=== PATIENT | female | born 1975 | race Caucasian/White ===

== ENCOUNTER 2021-05-07 10:33 | Emergency (ER) | payer OTHER, SELFPAY ==
[2021-05-07 10:40] VITALS: BP 153/91; PULSE 76; RESP 12; TEMP 36.5; O2SAT 98
[2021-05-07 10:50] VITALS: BP 153/91; PULSE 76; RESP 12; TEMP 36.5; O2SAT 98
[2021-05-07] MEDS: MECLIZINE HCL 25 MG TABLET 50 MG PO (11:39)
--- NOTE | 2021-05-07 11:41 | ECG_ITS ---
Measurements Intervals [place] Rate: 76 P: 32 OK: 158 QRS: 7 QRSD: 98 T: 26 QT: 397 QTc: 447 Interpretive Statements SINUS RHYTHM NORMAL ECG Electronically Signed On 05-07-2021 12:25:02 CDT by Shaun Andrade D.O.
--- NOTE | 2021-05-07 11:53 | ED.DIZZY ---
HPI - Dizziness General Chief Complaint: Dizziness Stated Complaint: DIZZY/VOMITING Time Seen by Provider: 05/07/21 11:18 Source: patient and RN notes reviewed Mode of arrival: ambulatory Limitations: no limitations History of Present Illness HPI Narrative: Patient presents today complaining of dizziness since 1:00am last night with nausea. Patient states symptoms are significantly exacerbated with any head movement. Patient states my body feels like there is a pulse in it. Denies vomiting, ear pain or pressure, chest pain or shortness of breath, numbness or tingling in the extremities, headache, vision changes. History of vertigo. Patient states her vertigo symptoms are typically accompanied by a migraine, but she does not currently have a migraine. Patient purchased some Dramamine at the [employer] this morning and took 1. Reports no change in symptoms. History of diabetes and has an insulin pump. Reports blood sugar was 135 upon her arrival. MD elicited complaint: dizziness Related Data Home Medications Medication Instructions Recorded Confirmed alprazolam 05/07/21 atenolol 05/07/21 atorvastatin 05/07/21 balsalazide mg PO 05/07/21 blood-glucose sensor [Dexcom G6 05/07/21 05/07/21 Sensor] calcitriol 05/07/21 cyclobenzaprine mg 05/07/21 diclofenac sodium PO 05/07/21 furosemide 05/07/21 gabapentin 05/07/21 glimepiride mg 05/07/21 insulin glargine [Lantus Solostar SUBCUT 05/07/21 U-100 Insulin] insulin lispro [Humalog U-100 05/07/21 Insulin] ketoconazole applic TOPICAL 05/07/21 ketorolac 05/07/21 levothyroxine 05/07/21 metformin mg 05/07/21 nortriptyline 05/07/21 semaglutide [Rybelsus] mg PO 05/07/21 sertraline mg 05/07/21 terbinafine HCl mg 05/07/21 tizanidine mg 05/07/21 Allergies Allergy/AdvReac Type Severity Reaction Status Date / Time codeine Allergy Mild VOMITING Verified 06/27/18 18:16 latex Allergy Mild BLISTER Verified 06/27/18 18:16 Sulfa (Sulfonamide Allergy Mild HIVES Verified 06/27/18 18:16 Antibiotics) Penicillins Allergy Unknown Verified 05/07/21 10:48 Review of Systems Review of Systems: CONSTITUTIONAL: Denies body aches, fever, chills, or sweats. EYES: Denies visual changes, redness, or discharge. ENT: Denies rhinorrhea, congestion, sore throat, or otalgia. CARDIOVASCULAR: Denies chest pain, palpitations, or edema. RESPIRATORY: Denies cough or dyspnea. GASTROINTESTINAL: Denies abdominal pain, vomiting, or diarrhea.+ Nausea GENITOURINARY: Denies dysuria or hematuria. SKIN: Denies rash, itching, or wounds. MUSCULOSKELETAL: Denies back pain, joint pain, or myalgia. NEUROLOGIC: Denies headache, numbness, tingling, or weakness.+ Dizziness PSYCH: Denies depression or anxiety. [facility] Past Medical History Medical History (Updated 05/07/21 @ 12:16 by Caroline De Los Santos, [facility], ) Diabetes Migraines Thyroid cancer Vertigo Comments At time of signature, I have reviewed and agree with nursing past medical, surgical, social and family history unless otherwise noted. Please see nursing chart for further information. There is no relevant family history pertinent to the presenting complaint Exam Narrative: GENERAL: Well-appearing, well-nourished, and in no acute distress. HEAD: Normocephalic, atraumatic. EYES: EOMI. PERRL. No nystagmus noted. No redness or drainage. Conjunctivae normal. ENT: Mucous membranes pink and moist. Nares clear. No rhinorrhea. TMs normal bilaterally. Throat normal. Uvula midline. NECK: Normal AROM. Supple. No lymphadenopathy. CHEST: No respiratory distress. Clear to auscultation. HEART: Regular rate and rhythm. No murmur appreciated. Normal peripheral pulses. EXTREMITIES: Normal range of motion. No edema. Hand pilot captain equal and strong. Dorsiflexion and plantarflexion equal and strong. SKIN: Warm, dry, no rash. Capillary refill normal. Normal skin turgor. NEURO: No focal deficits. Alert and oriented x3. Patient sta
== END 2021-05-07 12:23 | disposition home or self-care (01) ==
PROVIDERS: Emergency Provider Nurse Practitioner; PCP Internal Medicine
DX: R42 Dizziness and giddiness (principal); E11.9 Type 2 diabetes mellitus without complications; Z85.850 Personal history of malignant neoplasm of thyroid
CPT/HCPCS: 93005; 99213; A9270; G0463

== ENCOUNTER 2023-04-04 12:24 | Emergency (ER) | payer OTHER, SELFPAY ==
--- NOTE | ~2023-04-04 | XR_ITS ---
EXAMINATION: XR knee RT min 4V DATE: 04/04/2023 12:42 INDICATION: Right knee injury and pain. TECHNIQUE: 4 views of right knee were obtained. COMPARISON: None. FINDINGS: Bone alignment is normal. No fracture. There is mild tricompartmental osteoarthritis. There is a small knee joint effusion. IMPRESSION: 1. Mild right knee osteoarthritis. 2. Small right knee joint effusion. Reviewed, dictated and finalized at location A.
[2023-04-04 12:29] VITALS: BP 132/75; PULSE 83; RESP 18; TEMP 36.4; O2SAT 96
--- NOTE | 2023-04-04 13:26 | ED.GENADULT ---
HPI - General Adult General Chief complaint: Extremity Injury, Lower Stated complaint: Right Knee Injury Source: patient Mode of arrival: ambulatory Limitations: no limitations History of Present Illness HPI narrative: Patient presents for evaluation of right-sided knee pain. Symptom onset 2 days ago while lying in bed. She had a muscle cramp in her right flank. She attempted to reposition herself and felt a sharp pain in her right knee. Since that time pain is been constant, severe, worse with certain movements. She can only take NSAIDs for pain per her reports as she is currently on naltrexone. She reports some numbness in the right anterolateral aspect of the right knee. Related Data Home Medications Medication Instructions Recorded Confirmed atenolol 100 mg tablet 100 mg PO BID 05/07/21 04/04/23 blood-glucose sensor (Dexcom G6 05/07/21 04/04/23 Sensor device) calcitriol 0.5 mcg capsule 0.5 mcg PO DAILY 05/07/21 04/04/23 furosemide 40 mg tablet 40 mg PO TID 05/07/21 04/04/23 nortriptyline 25 mg capsule 25 mg PO QHS 05/07/21 04/04/23 tizanidine 2 mg tablet 2 mg PO TID 05/07/21 04/04/23 gabapentin 600 mg tablet 600 mg PO TID 04/04/23 04/04/23 levothyroxine 125 mcg tablet 125 mcg PO BID 04/04/23 04/04/23 lisinopril 10 mg tablet 10 mg PO DAILY 04/04/23 04/04/23 metolazone 2.5 mg tablet 2.5 mg PO DAILY 04/04/23 04/04/23 sertraline 100 mg tablet 150 mg PO DAILY 04/04/23 04/04/23 Allergies Allergy/AdvReac Type Severity Reaction Status Date / Time codeine Allergy Mild VOMITING Verified 04/04/23 12:25 latex Allergy Mild BLISTER Verified 04/04/23 12:25 Sulfa (Sulfonamide Allergy Mild HIVES Verified 04/04/23 12:25 Antibiotics) Penicillins Allergy Unknown Unknown Verified 04/04/23 12:25 Review of Systems Review of Systems: CONSTITUTIONAL: Denies fever, chills, or sweats. EYES: Denies visual changes, redness, or discharge. ENT: Denies rhinorrhea, congestion, sore throat, or otalgia. CARDIOVASCULAR: Denies chest pain, palpitations, or edema. RESPIRATORY: Denies cough or dyspnea. GASTROINTESTINAL: Denies abdominal pain, nausea, vomiting, or diarrhea. GENITOURINARY: Denies dysuria or hematuria. SKIN: Denies rash or itching. MUSCULOSKELETAL: Reports right knee pain. NEUROLOGIC: Reports numbness in the right anterolateral aspect of the right knee. Denies headache, numbness, dizziness, or weakness. PSYCHIATRIC: Denies anxiety or depression. [facility] Past Medical History Medical History Diabetes Migraines Thyroid cancer Vertigo Surgical History Surgical History H/O thyroidectomy Family History Family History Mother Family history non-contributory Social History Social History Alcohol intake: never Substance use: never Living arrangements: with family Gender identity (if verbalized by the patient): Female Sexual Orientation (if Verbalized by the Patient): Straight or Heterosexual Spiritual care concerns: No Exam Narrative: GENERAL: Well-appearing, well-nourished, and in no acute distress. HEAD: Normocephalic, atraumatic. EYES: PERRLA and EOMI. ENT: Nares clear, no rhinorrhea or epistaxis. Mucous membranes moist. Oropharynx without tonsillar hypertrophy exudate or other lesions. Bilateral TMs pearly wong nonbulging NECK: Supple. No adenopathy or masses. No carotid bruits or JVD CHEST: Clear to auscultation. No respiratory distress. No wheezes rales or rhonchi HEART: Regular rate and rhythm. No murmur heard. Normal peripheral pulses. ABDOMEN: Soft, nontender, nondistended, normal active bowel sounds. EXTREMITIES: Anterior aspect of the right knee is tender palpation. There is no obvious deformity. There is decreased active ROM in right knee 2/2 pa
== END 2023-04-04 13:25 | disposition home or self-care (01) ==
PROVIDERS: Emergency Provider Nurse Practitioner; PCP Internal Medicine
DX: M25.461 Effusion, right knee (principal); S86.911A Strain of unspecified muscle(s) and tendon(s) at lower leg level, right leg, initial encounter; X50.9XXA Other and unspecified overexertion or strenuous movements or postures, initial encounter; E11.9 Type 2 diabetes mellitus without complications; E89.0 Postprocedural hypothyroidism
CPT/HCPCS: 73564; 99213; G0463